=== PATIENT | male | born 1995 | race Caucasian/White ===

== ENCOUNTER → 2018-09-02 | Outpatient (CLI) | payer BC, OTHER ==
[2018-09-02 13:47] LABS: HEMATOCRIT 46.7 % (42.0-52.0); HEMOGLOBIN 15.7 g/dl (13.5-17.5); MEAN CORPUSCULAR HEMOGLOBIN 27.1 pg (27.0-33.0); MEAN CORPUSCULAR HGB CONC 33.6 g/dl (32.0-36.5); MEAN CORPUSCULAR VOLUME 80.7 fl (80.0-96.0); PLATELET COUNT, AUTOMATED 246 10^3/uL (150-450); RED BLOOD COUNT 5.79 10^6/uL (4.30-6.10); WHITE BLOOD COUNT 6.6 10^3/uL (4.0-10.0)
[2018-09-02 14:25] LABS: ALBUMIN 4.3 GM/DL (3.2-5.2); ALT/SGPT 66 U/L (12-78); BILIRUBIN,TOTAL 0.7 MG/DL (0.2-1.0); BLOOD UREA NITROGEN 11 MG/DL (7-18); CARBON DIOXIDE LEVEL 28 MEQ/L (21-32); CHLORIDE LEVEL 104 MEQ/L (98-107); CHOLESTEROL LEVEL 204 MG/DL (<200); CHOLESTEROL RISK RATIO 4.744 (<5); CREATININE FOR GFR 0.94 MG/DL (0.70-1.30); FREE T4 1.16 NG/DL (0.76-1.46); GLOMERULAR FILTRATION RATE > 60.0 (>60); GLUCOSE, FASTING 81 MG/DL (70-100); HDL CHOLESTEROL 43 MG/DL (>40); LDL CHOLESTEROL 137 MG/DL (<100); NON-HDL-C 161 MG/DL; POTASSIUM SERUM 4.1 MEQ/L (3.5-5.1); SODIUM LEVEL 138 MEQ/L (136-145); TOTAL PROTEIN 7.3 GM/DL (6.4-8.2); TRIGLYCERIDES LEVEL 118 MG/DL (<150)
--- NOTE | 2018-09-02 19:00 | ECGEPIP ---
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
== END ==
LOC: M LAB 12:58
PROVIDERS: ATTEND Physician Assistant
DX: R03.0 Elevated blood-pressure reading, without diagnosis of hypertension (principal); E66.01 Morbid (severe) obesity due to excess calories; R00.0 Tachycardia, unspecified; Z13.220 Encounter for screening for lipoid disorders

== ENCOUNTER → 2019-03-23 | Outpatient (CLI) | payer BC, OTHER ==
[2019-03-23 15:00] LABS: FREE T4 1.14 NG/DL (0.76-1.46); THYROID STIMULATING HORMONE 2.34 uIU/ML (0.358-3.740)
== END ==
LOC: M LAB 13:41
PROVIDERS: ATTEND Physician Assistant
DX: R79.89 Other specified abnormal findings of blood chemistry (principal)

== ENCOUNTER → 2020-03-26 | Outpatient (CLI) | payer BC, OTHER ==
[2020-03-26 13:19] LABS: ALT/SGPT 58 U/L (12-78); BILIRUBIN,TOTAL 0.5 MG/DL (0.2-1.0); BLOOD UREA NITROGEN 10 MG/DL (7-18); CALCIUM LEVEL 9.5 MG/DL (8.5-10.1); CARBON DIOXIDE LEVEL 30 MEQ/L (21-32); CHLORIDE LEVEL 108 MEQ/L (98-107); CREATININE FOR GFR 0.97 MG/DL (0.70-1.30); GLOMERULAR FILTRATION RATE > 60.0 (>60); GLUCOSE, FASTING 89 MG/DL (70-100); POTASSIUM SERUM 4.6 MEQ/L (3.5-5.1); SODIUM LEVEL 142 MEQ/L (136-145)
[2020-03-26 13:33] LABS: MALB URINE SIEMENS 11.6 MG/L
== END ==
LOC: M LAB 11:23
PROVIDERS: ATTEND Physician Assistant
DX: R03.0 Elevated blood-pressure reading, without diagnosis of hypertension (principal)

== ENCOUNTER → 2023-09-17 | Outpatient (CLI) | payer BC, OTHER | LOC: M SLEEP 20:00 | PROVIDERS: ATTEND Physician Assistant | DX: G47.33 Obstructive sleep apnea (adult) (pediatric) (principal) ==